=== PATIENT | female | born 2000 | race Caucasian/White ===

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

== ENCOUNTER 2018-01-12 20:53 | Emergency (ER) | payer OTHER ==
[2018-01-12 21:06] VITALS: BP 129/79; PULSE 91; BMI 55.3
[2018-01-12] MEDS ORDERED: ACETAMINOPHEN 325 MG TABLET (FP) PO ONE (21:34)
[2018-01-12] MEDS ORDERED: ACETAMINOPHEN 325 MG TABLET (FP) ONE (21:41)
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
[2018-01-12 23:46] LABS: BASO % 0.4 % (0-2.0); EOS % 1.6 % (0-4.5); HEMATOCRIT 32.5 % (32.4-45.2); HEMOGLOBIN 10.6 GM/dL (10.7-15.3); LYMPH % 22.1 % (8-40); MCH 25.5 pg (25.7-33.7); MCHC 32.7 g/dl (32.0-36.0); MEAN CELL VOLUME 77.9 fl (80-96); MEAN PLT VOLUME 8.4 fl (7.5-11.1); MONO % 6.6 % (3.8-10.2); NEUT % 69.3 % (42.8-82.8); PLATELET COUNT 428 K/MM3 (134-434); RBC 4.18 M/mm3 (3.60-5.2); WHITE BLOOD COUNT 14.6 K/mm3 (4.0-10.0)
[2018-01-13 00:15] LABS: URINE APPEARANCE CLOUDY; URINE BILIRUBIN NEGATIVE (<2.0 mg/dL); URINE COLOR YELLOW; URINE GLUCOSE (UA) NEGATIVE (NEGATIVE); URINE KETONE TRACE (NEGATIVE); URINE LEUK ESTERASE NEGATIVE (NEGATIVE); URINE NITRITE NEGATIVE (NEGATIVE); URINE PROTEIN 1+ (NEGATIVE)
[2018-01-13 00:17] LABS: ALBUMIN 4.1 g/dl (3.4-5.0); ALK PHOS 94 U/L (45-117); ANION GAP 6 MMOL/L (8-16); BILIRUBIN,TOTAL 0.2 mg/dL (0.2-1); BLOOD UREA NITROGEN 10 mg/dL (7-18); CALCIUM 8.9 mg/dL (8.5-10.1); CHLORIDE 109 mmol/L (98-107); CO2 26 mmol/L (21-32); CREATININE 0.7 mg/dL (0.55-1.3); GLUCOSE,RANDOM 97 mg/dL (74-106); POTASSIUM 4.8 mmol/L (3.5-5.1); SGOT/AST 34 U/L (15-37); SGPT/ALT 25 U/L (13-61); SODIUM 141 mmol/L (136-145); TOT PROT 7.8 g/dl (6.4-8.2)
[2018-01-13 00:18] LABS: CALCIUM OXALATE CRYSTALS FEW /hpf (NONE SEEN); EPI CELLS MODERATE /HPF (FEW); URINE BACTERIA RARE /hpf (NONE SEEN); URINE MUCUS MODERATE
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
--- NOTE | 2018-01-13 10:28 | EKG ---
Test Reason : Blood Pressure : / mmHG Vent. Rate : 079 BPM Atrial Rate : 079 BPM P-R Int : 148 ms QRS Dur : 086 ms QT Int : 390 ms P-R-T Axes : 064 056 041 degrees QTc Int : 447 ms NORMAL SINUS RHYTHM WITH SINUS ARRHYTHMIA NORMAL ECG WHEN COMPARED WITH ECG OF 21-MAR-2015 15:16, NO SIGNIFICANT CHANGE WAS FOUND Confirmed by VIOLETTE VALENCIA MD ([id number]) on 01/13/2018 10:28:17 AM Referred By: Confirmed By:VIOLETTE VALENCIA MD
== END 2018-01-13 00:39 | disposition home or self-care (01) ==
LOC: JER 20:53 → JERFT 20:53 → JER 01-13 00:39
DX: S09.8XXA Other specified injuries of head, initial encounter (principal); Y04.0XXA Assault by unarmed brawl or fight, initial encounter; Y93.89 Activity, other specified; Y92.89 Other specified places as the place of occurrence of the external cause; Y99.8 Other external cause status
CPT/HCPCS: 36415; 70450-TC; 80053; 80307; 81003; 81015; 84703; 85025; 87086; 93005; 93010; 99282-25

== ENCOUNTER 2020-10-06 19:21 | Emergency (ER) | payer OTHER ==
[2020-10-06 19:33] VITALS: BMI 25.7
[2020-10-06 23:03] VITALS: BP 117/75; PULSE 113
[2020-10-06 23:07] VITALS: TEMP 98.4
== END 2020-10-06 23:08 | disposition short-term general hospital (02) ==
LOC: JER 19:21
DX: R52 Pain, unspecified (principal)
CPT/HCPCS: 99284-25

== ENCOUNTER 2023-07-19 22:13 | Emergency (ER) | payer OTHER ==
[2023-07-19 22:28] VITALS: BP 129/71; PULSE 90; RESP 18; TEMP 97; BMI 28.3
[2023-07-19] MEDS ORDERED: BACITRACIN ZINC 15 GM TUBE TOPICAL OINTMENT ONE (22:53)
[2023-07-19] MEDS: BACITRACIN ZINC 15 GM TUBE TOPICAL OINTMENT TP ONE (22:56)
== END 2023-07-19 23:04 | disposition home or self-care (01) ==
LOC: JER 22:13
DX: M25.562 Pain in left knee (principal); S80.212A Abrasion, left knee, initial encounter; V43.52XA Car driver injured in collision with other type car in traffic accident, initial encounter; Y92.410 Unspecified street and highway as the place of occurrence of the external cause
CPT/HCPCS: 99283-25

== ENCOUNTER 2023-07-21 08:54 | Emergency (ER) | payer OTHER ==
[2023-07-21 09:01] VITALS: BP 127/80; PULSE 81; RESP 18; TEMP 98.6; BMI 28.3
[2023-07-21] MEDS ORDERED: LIDOCAINE 4% PATCH TP ONE (09:40)
[2023-07-21] MEDS ORDERED: METHOCARBAMOL 500 MG TABLET ONE (09:41)
[2023-07-21] MEDS: METHOCARBAMOL 750 MG TABLET PO ONE (09:47)
[2023-07-21] MEDS: LIDOCAINE 4% PATCH TP ONE (09:47)
[2023-07-21] MEDS ORDERED: LIDOCAINE PATCH REMOVAL MC ONE (22:00)
== END 2023-07-21 11:00 | disposition home or self-care (01) ==
LOC: JER 08:54
DX: S16.1XXA Strain of muscle, fascia and tendon at neck level, initial encounter (principal); S39.012A Strain of muscle, fascia and tendon of lower back, initial encounter; X58.XXXA Exposure to other specified factors, initial encounter
CPT/HCPCS: 99283-25